=== PATIENT | female | born 1935 | race African-American/Black ===

== ENCOUNTER 2019-01-05 09:47 | Day surgery (SDC) | payer OTHER ==
--- NOTE | 2019-01-05 09:30 | PDANEPAE ---
ANE History of Present Illness pancreatic mass ANE Past Medical History - Cardiovascular History Hx Hypertension: Yes Hx Coronary Artery / Peripheral Vascular Disease: Yes - Pulmonary History Hx COPD: No Hx Asthma/Reactive Airway Disease: No Hx Recent Upper Respiratory Infection: No Hx Oxygen in Use at Home: No Hx Sleep Apnea: No - Neurologic History Hx Cerebrovascular Accident: No Hx Seizures: No Hx Dementia: No - Endocrine History Hx Diabetes: No Hypothyroid: No Hyperthyroid: No Obesity: no - Renal History Hx Renal Disorders: Yes Renal History Comment: CRI - Liver History Hx Hepatic Disorders: Yes Hepatic History Comment: pancreatic mass - Neurological & Psychiatric Hx Neurological / Psychiatric History Comment: depression - GI History GERD: mild Hx Gastrointestinal Disorders: Yes - Surgical History Prior Surgeries: hysterectomy'. knee'. thryoid ANE Review of Systems Review of systems is: negative Review of Systems: ANE Patient History - Allergies Allergies/Adverse Reactions: aspirin Allergy (Verified 01/05/19 09:24) doxycycline Allergy (Verified 01/05/19 09:24) - Home Medications Home medications: home medication list seen and reviewed Home Medications: Acetaminophen 325 mg PO PRN PRN 01/05/19 [Last Taken 01/04/19] Amlodipine Besylate 10 mg PO DAILY 01/05/19 [Last Taken 01/04/19] Herbals/Supplements -Info Only 01/05/19 [Last Taken 12/29/18] Metoprolol Succinate Xr 100 mg PO DAILY 01/05/19 [Last Taken 01/04/19] Pantoprazole Sodium [Protonix] 01/05/19 [Last Taken 01/04/19] Sertraline HCl 25 mg PO DAILY 01/05/19 [Last Taken 01/04/19] Warfarin Sodium 2.5 mg PO 01/05/19 [Last Taken 12/28/18] - NPO status NPO Status: no food or drink >8 hours - Anes Hx Anes Hx: no prior problems - Smoking Hx Smoking Status: Never smoked - Family Anes Hx Family Anes Hx: none ANE Physical Exam - Airway Neck exam: FROM Mallampati Score: Class 2 Mouth exam: normal dental/mouth exam - Pulmonary Pulmonary: no respiratory distress, clear to auscultation - Cardiovascular Cardiovascular: regular rate and rhythym, no murmur, rub, or gallop - ASA Status ASA Status: III ANE Anesthesia Plan Anesthesia Plan: GA with mask Total IV Anesthesia: Yes
[2019-01-05] MEDS ORDERED: PROPOFOL/EMULSION 500 MG/50 ML BOTTLE IV ONE (10:57)
[2019-01-05] MEDS ORDERED: IOTHALAMATE MEG (CONRAY) 50 ML VIAL IV ONE (11:03)
[2019-01-05] MEDS ORDERED: INDOMETHACIN 50 MG SUPP PR ONE (11:04)
[2019-01-05] MEDS ORDERED: ROCURONIUM 50 MG/5 ML VIAL ONE (11:08)
--- NOTE | 2019-01-05 11:08 | PDGENHP ---
History & Physical Chief Complaint: panc mass History of Present Illness: 83 year old female presents with jaundice with a mass seen in the head of the pancreas Pertinent Past, Social, Family History: PMHx: CAD, depression, CKD. PSurgHx: hysterectomy Relevant Physical Exam: HEENT: icteric. CV: RRR +s1s2. lungs;CTAB. Abd; soft , nt, + bs Cardiorespiratory Assessment: ASA 3
[2019-01-05] MEDS ORDERED: NS 500 ML IV SCH (11:15)
[2019-01-05] MEDS ORDERED: METOPROLOL TARTRATE 5 MG/5 ML INJ ONE (11:34)
[2019-01-05] MEDS ORDERED: LABETALOL HCL 5 MG/ML 20 ML MDV ONE (11:54)
[2019-01-05] MEDS ORDERED: fentaNYL 100 MCG/2 ML INJ IVP PRN (12:25)
[2019-01-05] MEDS ORDERED: ONDANSETRON 4 MG/2 ML VIAL IVP PRN (12:25)
[2019-01-05] MEDS ORDERED: LABETALOL HCL 5 MG/ML 20 ML MDV IVP PRN (12:25)
[2019-01-05] MEDS ORDERED: NALOXONE HCL 0.4 MG/ML INJ IVP PRN (12:25)
--- NOTE | 2019-01-05 12:26 | POSTANESTH ---
Post Anesthetic Evaluation Cardiovascular Status: Normal, Stable, Similar to Pre-Op Cond Respiratory Status: Normal, Stable Level of Consciousness/Mental Status: Can Participate in Eval Pain Control: Adequate, Prn Tx Ordered Nausea/Vomiting Control: Adequate, Prn Tx Ordered Complications Possibly Related to Anesthesia: None Noted
[2019-01-05] MEDS ORDERED: NEOSTIGMINE METHYLSULFATE 10 MG/10 ML MDV ONE (13:31)
[2019-01-05] MEDS ORDERED: GLYCOPYRROLATE 0.2 MG/1 ML VIAL ONE (13:32)
[2019-01-05] MEDS ORDERED: ONDANSETRON 4 MG/2 ML VIAL ONE ×2 (13:35→13:56)
[2019-01-05] MEDS ORDERED: LR 1,000 ML IV ONE (14:42)
[2019-01-05 17:30] VITALS: BP 124/61
--- NOTE | 2019-01-05 22:34 | GPN ---
[f rep st] PROCEDURE NOTE DATE OF PROCEDURE: 01/05/2019 PROCEDURE: Esophagogastroduodenoscopy with biopsy, endoscopic ultrasound with fine-needle aspiration. INDICATION: The patient is an 83-year-old female who presents for evaluation of biliary obstruction and weight loss. She had an ultrasound which revealed biliary dilation. CONSENT: Risks, benefits, and alternatives of the procedure were discussed in great detail with the patient. Risk of infection, bleeding, perforation, sedation, and pancreatitis were discussed. All questions answered. Informed consent obtained. MEDICATIONS: General anesthesia. Please see anesthesia record for details. ESTIMATED BLOOD LOSS: Insignificant ESOPHAGOGASTRODUODENOSCOPY EXAMINATION: The Olympus upper endoscope was introduced in the mouth and advanced to the esophagus. The proximal, mid, and distal esophagus were normal in appearance. The stomach was entered and closely examined, including retroflexed views of the angularis, cardia, and fundus. A hiatal hernia was noted. The mucosa of the antrum and body of the stomach was erythematous in a patchy distribution. With some difficulty, the scope was passed beyond the pylorus due to a stricture at the pylorus. The duodenal bulb was normal in appearance. However, at the distal duodenal bulb, a high-grade stenosis was noted. With great difficulty, the 7 mm upper scope was passed to the 2nd portion of the duodenum. The 2nd portion of the duodenum was normal in appearance. ENDOSCOPIC ULTRASOUND EXAMINATION: The Olympus linear echoendoscope was introduced into the mouth and advanced to the duodenal bulb. The esophagus, stomach, and duodenum were visualized endosonographically. Due to the high- grade stricture, the scope could not be passed beyond the duodenal bulb. It was also difficult to pass the EUS scope into the duodenal bulb, but it was successful after attempts for a few minutes. A large pancreatic mass was seen in the head of the pancreas. It measured approximately 2 x 2 cm. It did appear to invade the duodenal wall. Doppler was used to rule out intervening vessels. Four passes were made with a [employer] 25-gauge needle in the lesion. Cytology was present. Another 3 passes were made with a [employer] 22 Acquire needle. Cytology was present. No obvious liver lesions noted, but it was very hard to visualize the liver due to limited maneuverability of the echoendoscope in the duodenal bulb. The CBD was dilated to 15mm. Gallbladder was distended. No lymphadenopathy was noted in this limited exam. A side viewing duodenoscope (ERCP scope) was utilized but could not be passed into the 2nd portion of the duodenum. IMPRESSION: 1. Pancreatic mass, status post fine-needle aspiration and fine needle biopsy. 2. Gastritis, status post biopsy. 3. Limited procedure due to the high-grade stricture. 4 Impending duodenal obstruction. 5. ERCP not possible due to duodenal obstruction. RECOMMENDATIONS: 1. Follow up oncology and surgery. 2. Await FNA and FNB results. 3. Clear liquid diet. /[id number]/MODL MTDD
== END 2019-01-05 17:40 | disposition home or self-care (01) ==
LOC: FSGY 09:47
PROVIDERS: ATTEND Internal Medicine Gastroenterology
DX: C25.0 Malignant neoplasm of head of pancreas (principal); R17 Unspecified jaundice; K29.70 Gastritis, unspecified, without bleeding; K44.9 Diaphragmatic hernia without obstruction or gangrene; K21.9 Gastro-esophageal reflux disease without esophagitis; I25.10 Atherosclerotic heart disease of native coronary artery without angina pectoris; F32.9 Major depressive disorder, single episode, unspecified
CPT/HCPCS: J2405; J2704; Q9961